=== PATIENT | male | born 1995 | race Caucasian/White ===

== ENCOUNTER 2022-10-09 13:41 | Emergency (ER) | payer OTHER ==
--- NOTE | 2022-10-09 14:34 | NUR ---
CALLED TO TRIAGE, NO RESPONSE.
--- NOTE | 2022-10-09 15:28 | NUR ---
CALLED TO TRIAGE, NO RESPONSE.
== END 2022-10-09 15:54 | disposition left against medical advice (07) ==
LOC: ER 13:46
DX: Z53.21 Procedure and treatment not carried out due to patient leaving prior to being seen by health care provider (principal)